=== PATIENT | female | born 1990 | race Caucasian/White ===

== ENCOUNTER → 2016-08-14 | Day surgery (SDC) | payer OTHER ==
[~2016-08-14] MED LIST: ACET-749 PO; MTR600X PO; [UNRECOGNIZED DRUG - CODE] PO
--- NOTE | 2016-08-14 15:54 | Anesthesiology Progress Note ---
Anesthesia Progress Note Date of Service Aug 14, 2016. Progress Notes Patient seen at [facility] today for exam and advise for upcoming (date to be determined). Past medical history: borderline personality disorder, schizoaffective disorder , anxiety, current 1/2 PPD tobacco use x 12 years Past surgical history: tonsillectomy Meds: prenatals Vitals: Ht 5'1; Wt 125 pounds; BP 126/75, pulse 95. temp 98.5, resp 20, spo2 99 % on room air Physical exam: Mallampati 1, TMD 3 finger breaths, no significant abnormality to lumbar spine No previous deliveries/c-sections. is currently breech so plan for c- section unless baby's position changes. Issue patient is concerned with was with either epidural or spinal placement given history of scoliosis. No previous lumbar surgery/hardware. No recent lumbar imaging. No significant abnormality noted to lumbar spine on exam. Patient reassured. Patient educated on spinal/epidural procedures. Patient seemed satisfied (explained anesthesia would do best to put in spinal/epidural with least amount of attempts as possible. All questions answered. Business card given.
== END | disposition home or self-care (01) ==
LOC: C.ACU 15:05
PROVIDERS: ATTEND Obstetrics & Gynecology
DX: Z34.83 Encounter for supervision of other normal pregnancy, third trimester (principal); M41.20 Other idiopathic scoliosis, site unspecified

== ENCOUNTER 2016-09-05 10:00 | Inpatient (IN) | payer OTHER ==
[~2016-09-05] VITALS: Ht 154.9 cm; Wt 59.1 kg
[2016-09-05] MEDS ORDERED: CITRIC ACID/SODIUM CITRATE 15 ML UDC PO ONE (11:00)
[2016-09-05 11:22] LABS: BASO % 0.1 %; BASO ABS # 0.02 K/uL (0-0.2); COMPLETE YES; EOS % 0.2 %; HEMATOCRIT 30.2 % (37-47); IG% 0.6 %; LYMPH % 15.9 %; LYMPH ABS # 2.58 K/uL (1.2-3.4); MEAN CELL VOLUME 87.8 fL (80-100); MEAN CORPUSCULAR HEMOGLOBIN 30.5 pg (25-34); MEAN CORPUSCULAR HGB CONC 34.8 g/dl (32-36); MEAN PLATELET VOLUME 9.4 fL (7.4-10.4); MONO % 7.5 %; NEUT % 75.7 %; PLATELET COUNT 264 K/uL (130-400); RED BLOOD COUNT 3.44 M/uL (4.2-5.4); WHITE BLOOD COUNT 16.24 K/uL (4.8-10.8)
[2016-09-05] MEDS ORDERED: CEFAZOLIN IV 2,000 MG in DEXTROSE 5% 50ML 50 ML IV SCH (11:30)
--- NOTE | 2016-09-05 12:00 | HISTORY & PHYSICAL EXAMINATION ---
DATE OF ADMISSION: 09/05/2016 CHIEF COMPLAINT: Rupture of membranes. HISTORY OF PRESENT ILLNESS: The patient is a 26-year-old 2, para 0 at 36 weeks and 5 days gestation, who presents to labor and delivery with spontaneous rupture of membranes that occurred around 07:00 a.m. on the morning of admission. There was a large gush of fluid and therefore, she came in for evaluation. On arrival, she was grossly ruptured. She is known to be in breech presentation. Bedside ultrasound confirmed that the baby is breech. She was found to be 3-4 cm. Her has been complicated by tobacco use and is currently a half a pack per day smoker along with a history of marijuana use throughout the . She has been followed by maternal medicine for growth restriction. She was seen by them yesterday with good umbilical artery Dopplers and a BPP that was reassuring. I discussed with the patient that she is ruptured and baby is still breech therefore will proceed with a primary section. Risks, benefits and alternatives were discussed with the patient and informed consent was obtained. PAST MEDICAL HISTORY: Significant for schizoaffective disorder, bipolar, borderline personality disorder, and marijuana use. PAST SURGICAL HISTORY: She had her tonsils removed in 2006. OBSTETRIC HISTORY: She had one ectopic in 2015. She was given methotrexate and did not require any surgery. SOCIAL HISTORY: She is currently a half a pack per day smoker. Denies alcohol use. She does have a history of drug use, was using bath salts in the past and currently smokes marijuana throughout the . MEDICATIONS: vitamins. ALLERGIES: No known drug allergies. SHE IS ALLERGIC TO PEANUTS. LABORATORIES: GBS is positive. Blood type is A positive, rubella immune, hepatitis B surface antigen negative, HIV nonreactive, and RPR negative. PHYSICAL EXAMINATION: GENERAL: The patient is awake, alert, and oriented x3. She is in no acute distress. HEART: Regular rate and rhythm. LUNGS: Clear to auscultation bilaterally. ABDOMEN: Gravid uterus, small for gestational age. Bowel sounds present x4. EXTREMITIES: No clubbing, cyanosis or calf tenderness. VAGINAL EXAM: She is grossly ruptured with clear amniotic fluid noted. She was 3-4 cm, 100% effaced, and -1 station. Bedside ultrasound confirmed baby in the breech presentation. heart tones are category 1. ASSESSMENT AND PLAN: A 26-year-old 2, para 0 at 36 weeks and 5 days gestation, who presents with premature rupture of membranes at 36 weeks and 5 days gestation, will be admitted to labor and delivery and will proceed with a primary section secondary to breech presentation and rupture of membranes. Risks, benefits and alternatives were discussed with the patient and informed consent was obtained. CHRISTIANE
[2016-09-05 12:04] LABS: BENZODIAZEPINE, URINE NEG (NEG); COCAINE,URINE NEG (NEG); PHENCYCLIDINE, URINE NEG (NEG)
[2016-09-05] MEDS ORDERED: [UNRECOGNIZED DRUG - CODE] PO (12:07)
[2016-09-05] MEDS: LACTATED RINGER'S 1000ML 1,000 ML IV SCH ×2 (12:08→12:12)
[2016-09-05] MEDS ORDERED: MoRPHine SULFATE PF 1 MG/ML 10 ML AMP/VIAL ONE (12:24)
[2016-09-05] MEDS ORDERED: SODIUM CHLORIDE 0.9% 1000ML 1,000 ML IV PRN (12:53)
[2016-09-05] MEDS ORDERED: LACTATED RINGER'S 1000ML 500 ML IV PRN (12:53)
[2016-09-05] MEDS ORDERED: NALOXONE HCL INJ 0.08 MG in SYRINGE 1.8 ML IV PRN (12:53)
[2016-09-05] MEDS ORDERED: NALOXONE HCL INJ 1 MG in SODIUM CHLORIDE 0.9% 1000ML 1,000 ML IV PRN ×4 (12:53)
[2016-09-05 12:59] VITALS: Ht 154.9 cm; Wt 59.1 kg
[2016-09-05] MEDS ORDERED: EpHEDrine SULFATE INJ 50 MG/ML AMP IV PRN ×2 (13:00)
[2016-09-05] MEDS ORDERED: ONDANSETRON INJ 2 MG/ML 2 ML VIAL IV PRN ×2 (13:00)
[2016-09-05] MEDS ORDERED: PROMETHAZINE HCL INJ 12.5 MG in SODIUM CHLORIDE 0.9% 50ML 50 ML IV PRN (13:00)
[2016-09-05] MEDS ORDERED: PROMETHAZINE HCL INJ 25 MG in SODIUM CHLORIDE 0.9% 50ML 50 ML IV PRN (13:00)
[2016-09-05] MEDS ORDERED: MoRPHine SULFATE PF 1 MG/ML 10 ML AMP/VIAL EPI PRN (13:00)
[2016-09-05] MEDS ORDERED: DiphenhydrAMINE HCL 50 MG/ML VIAL IV PRN (13:00)
[2016-09-05] MEDS ORDERED: NALBUPHINE HCL INJ 10 MG/ML AMP IV PRN (13:00)
[2016-09-05] MEDS ORDERED: ATROPINE SULFATE 0.1 MG/ML 5ML SYR IV PRN (13:00)
[2016-09-05] MEDS ORDERED: NO NARCOTICS OR SEDATIVES SCH (13:00)
[2016-09-05] MEDS ORDERED: NALOXONE HCL 0.4 MG/1 ML VIAL/CARP IV PRN (13:00)
[2016-09-05] MEDS ORDERED: MEPERIDINE HCL 25 MG/ML CARP IV PRN ×2 (13:00)
[2016-09-05] MEDS ORDERED: PHENYLEPHRINE 100MCG/ML 5ML SYR IV PRN (13:00)
[2016-09-05] MEDS ORDERED: KETOROLAC TROMETHAMINE 30 MG/ML VIAL IV. PRN (13:00)
[2016-09-05] MEDS ORDERED: ONDANSETRON INJ 2 MG/ML 2 ML VIAL ONE (14:04)
[2016-09-05] MEDS ORDERED: OXYTOCIN INJ 10 UNITS/ML VIAL ONE (14:04)
[2016-09-05] MEDS ORDERED: METOCLOPRAMIDE HCL INJ 5 MG/ML 2 ML VIAL ONE (14:04)
[2016-09-05] MEDS ORDERED: PROPOFOL IV EMULSION 10 MG/ML 20 ML VIAL IV ONE (14:04)
[2016-09-05] MEDS ORDERED: MIDAZOLAM HCL 1 MG/ML 2ML VIAL ONE (14:15)
[2016-09-05] MEDS ORDERED: LACTATED RINGER'S 1000ML 1,000 ML IV SCH (14:41)
[2016-09-05] MEDS ORDERED: DIPHTHERIA/TETANUS/PERTUSSIS 0.5 ML SYR/VIAL IM. ONE (14:45)
[2016-09-05] MEDS ORDERED: MAGNESIUM HYDROXIDE SUSP 30 ML UDC PO PRN (14:45)
[2016-09-05] MEDS ORDERED: HYDROCORTISONE ACETATE 25 MG SUPP PR PRN (14:45)
[2016-09-05] MEDS ORDERED: LANOLIN OINT EXT PRN ×2 (14:45)
[2016-09-05] MEDS ORDERED: SUPERCREAM 0.870 % 15GM JAR EXT PRN (14:45)
[2016-09-05] MEDS ORDERED: SENNA 8.6 MG TAB PO PRN (14:45)
[2016-09-05] MEDS ORDERED: BENZOCAINE 20% AER SPR 82.5 GM CAN EXT PRN (14:45)
--- NOTE | 2016-09-05 14:47 | [facility] Post Operative Brief Note ---
Immediate Operative Summary Operative Date Sep 05, 2016. Pre-Operative Diagnosis IUP 36.5 weeks, PPROM, breech, IUGR Post-Operative Diagnosis IUP 36.5 weeks, PPROM, breech, IUGR Procedure(s) Performed Primary low uterine transverse caesarean section Live female child at Surgeon Dr. Tavera Estimated Blood Loss 500ml Findings Patient delivered a viable female infant via PLTCS secondary to breech presentation. 's and weight pending. Normal uterus and bilateral tubes and ovaries noted. An intact placenta with a 3 VC delivered manually and sent to pathology. Cord blood gases obtained. Both patient and baby tolerated well and were sent to recovery with stable vital signs. Fluids (cc crystalloids) 3000 Specimens A: Placenta-exam B: Cord blood C: Arterial & venous cord gases Drains Valladares to gravity Anesthesia Spinal Complication(s) None Disposition L&D
[2016-09-05] MEDS: KETOROLAC TROMETHAMINE 30 MG/ML VIAL IV. PRN (15:05)
--- NOTE | 2016-09-05 16:29 | OPERATIVE REPORT ---
DATE OF OPERATION: 09/05/2016 PREOPERATIVE DIAGNOSES: 1. Intrauterine at 36 weeks and 5 days gestation. 2. Breech presentation. 3. premature rupture of membranes. 4. Intrauterine growth restriction. POSTOPERATIVE DIAGNOSES: Same. OPERATIVE PROCEDURE: Primary low transverse section. SURGEON: Dr. Tavera. SENIOR CYTOGENETIC TECHNOLOGIST: None. ANESTHESIA: Spinal. ESTIMATED BLOOD LOSS: 500 mL. INTRAVENOUS FLUIDS: 3000 mL crystalloids. URINE OUTPUT: 100 mL clear yellow urine. SPECIMENS: Placenta with 3-vessel cord. Cord blood gases and cord blood. DRAINS: Valladares to gravity. COMPLICATIONS: None. DISPOSITION: Labor and delivery. OPERATIVE FINDINGS: The patient presented to labor and delivery on the morning of 09/05/2016 with spontaneous rupture of membranes at approximately 7 a.m. on the morning of admission. She was found to be in the breech presentation. She has been followed for IUGR by maternal medicine. She had normal umbilical artery Dopplers yesterday and a reassuring BPP. On arrival, she was found to be 3-4 cm. Bedside ultrasound confirmed the baby was still in the breech presentation. Therefore, patient was agreeable to proceed with a primary section. She delivered a viable female in the sohan breech presentation. Apgars and weight were pending. Normal uterus and bilateral tubes and ovaries were noted. An intact placenta with a 3-vessel cord delivered manually and sent to pathology. Cord blood gases obtained. Both patient and baby tolerated the surgery well and were sent to recovery with stable vital signs. OPERATIVE PROCEDURE IN DETAIL: The patient was taken to the operating room where general spinal anesthesia was administered. The patient was immediately placed in a dorsal supine position with a left lateral tilt and was prepped and draped in a manner appropriate for the procedure. Once anesthesia was found to be adequate, a Pfannenstiel skin incision was made 2 fingerbreadths above the pubic symphysis and was carried down through to the layer of the rectus fascia. Fascia was nicked in the midline and extended bilaterally with curved Simental scissors. The superior aspect of the fascial incision was grasped with Qian clamps, elevated, and the rectus muscles were dissected off with the use of the curved Simental scissors and electrocautery. Likewise, the inferior aspect of the fascial incision was grasped with Qian clamps, elevated, and the rectus muscles were dissected off with the use of the curved Simental scissors. The rectus muscles were in midline. The peritoneum was grasped with hemostats x2 and entered with Metzenbaum scissors. The peritoneal incision was then extended cephalocaudally with gentle traction. The bladder blade was then placed within the abdomen and the vesicouterine peritoneum was identified and a bladder flap was created with Metzenbaum scissors and digital traction. The bladder flap was then reincorporated beneath the Maxwell blade. A transverse incision was then made on the uterus and extended bilaterally with bandage scissors. The baby was then delivered in the sohan breech presentation without difficulty. Baby was bulb suctioned at delivery. Cord was clamped x2 and cut. The baby was immediately handed to an awaiting tire adjuster for further evaluation and management. Please see their notes for further baby assessment. Cord blood was then obtained and cord blood gases were also obtained. An intact placenta with 3-vessel cord was then delivered through the incision manually. The uterus was then exteriorized and wrapped in a moist laparotomy sponge. The uterus was then cleared of any trailing membranes and debris with the laparotomy sponge. The uterine incision was grasped with ring forceps in 4 quadrants and was closed with 0 Vicryl suture in continuous locking fashion. The second 0 Vicryl suture was used in imbricating fashion to ensure hemostasis. Any residual bleeding was suture-ligated with 0 Vicryl suture in a [id number] interrupted fashion. Excellent hemostasis was noted. The bladder flap was reapproximated to the lower uterine segment with 3-0 Vicryl suture in continuous running fashion. Excellent hemostasis was noted at the incision. The posterior cul-de-sac was then irrigated with warm saline solution. The uterus was then placed back within its normal anatomic position within the abdomen. The anterior cul-de-sac was then irrigated with warm saline solution. Inspection of the uterine incision was again noted to be hemostatic. All instruments were then removed from the abdomen. The peritoneum was grasped with Amanda clamps at 4 quadrants. It was closed with 2-0 Vicryl suture in continuous running fashion. The rectus fascia was then closed with 0 Vicryl suture in a continuous running fashion. Subcutaneous tissue was reapproximated with 2-0 Vicryl suture in an interrupted fashion. Skin was then closed with jessika. Excellent hemostasis was noted through all tissue layers. All sponge and instrument counts were found to be correct x2. The patient tolerated the surgery well and were sent to recovery with stable vital signs. I attest to the content of the Intraoperative Record and any orders documented therein. Any exceptio ns are noted below.
[2016-09-05] MEDS: SIMETHICONE 80 MG CHEW PO SCH ×2 (17:00→20:00)
[2016-09-05] MEDS: NICOTINE 14 MG/24 HR TDSY TD SCH (18:38)
--- NOTE | 2016-09-05 19:01 | Anesthesiology Progress Note ---
Anesthesia Post Op Note Date & Time Sep 05, 2016 at 19:00 Vital Signs Pain Intensity: 4.0 Notes Mental Status: alert / awake / arousable, participated in evaluation Pt Amnestic to Procedure: Yes Nausea / Vomiting: adequately controlled, improving with treatment Pain: adequately controlled Airway Patency, RR, SpO2: stable & adequate BP & HR: stable & adequate Hydration State: stable & adequate Neuraxial Anesthesia: was administered, sensory block is resolving Anesthetic Complications: no major complications apparent
[2016-09-05] MEDS: OXYTOCIN INJ 30 UNITS in LACTATED RINGER'S 1000ML 1,000 ML IV SCH (19:57)
[2016-09-05 20:00] VITALS: BP 130/71; PULSE 79; TEMP 37.1; O2SAT 98
[2016-09-05] MEDS: DOCUSATE SODIUM 100 MG CAP PO SCH (20:00)
[2016-09-05 21:00] VITALS: O2SAT 100
[2016-09-05 22:00] VITALS: O2SAT 99
[2016-09-05 23:00] VITALS: O2SAT 99
[2016-09-06] VITALS (11 sets, daily range): BP systolic 106–128; BP diastolic 62–80; PULSE 74–87; TEMP 36.7–37; O2SAT 98–100
[2016-09-06] MEDS: KETOROLAC TROMETHAMINE 30 MG/ML VIAL IV. PRN (00:07)
[2016-09-06] MEDS: OXYTOCIN INJ 30 UNITS in LACTATED RINGER'S 1000ML 1,000 ML IV SCH (03:30)
[2016-09-06] MEDS ORDERED: DC INTRASPINAL MORPHINE SCH (06:00)
[2016-09-06] MEDS ORDERED: OXYCODONE/ACETAMINOPHEN 5-325 TAB PO PRN (06:00)
[2016-09-06] MEDS ORDERED: ONDANSETRON INJ 2 MG/ML 2 ML VIAL IV PRN (06:00)
[2016-09-06] MEDS ORDERED: KETOROLAC TROMETHAMINE 30 MG/ML VIAL IV. PRN (06:00)
[2016-09-06] MEDS ORDERED: ZOLPIDEM TARTRATE 5 MG TAB PO PRN (06:00)
[2016-09-06 06:23] LABS: HEMATOCRIT 30.4 % (37-47); MEAN CELL VOLUME 86.9 fL (80-100); MEAN CORPUSCULAR HEMOGLOBIN 30.6 pg (25-34); MEAN CORPUSCULAR HGB CONC 35.2 g/dl (32-36); MEAN PLATELET VOLUME 9.4 fL (7.4-10.4); PLATELET COUNT 271 K/uL (130-400); WHITE BLOOD COUNT 14.66 K/uL (4.8-10.8)
[2016-09-06 08:10] LABS: BASO % 0.2 %; BASO ABS # 0.03 K/uL (0-0.2); COMPLETE YES; EOS % 0.3 %; IG% 0.4 %; LYMPH ABS # 2.35 K/uL (1.2-3.4); MONO % 7.8 %; NEUT % 75.3 %
[2016-09-06] MEDS: NICOTINE 14 MG/24 HR TDSY TD SCH (08:53)
[2016-09-06] MEDS: SIMETHICONE 80 MG CHEW PO SCH ×4 (08:55→20:01)
[2016-09-06] MEDS: PRENATAL VITAMIN TAB PO SCH (08:55)
[2016-09-06] MEDS: DOCUSATE SODIUM 100 MG CAP PO SCH ×2 (08:55→20:01)
[2016-09-06] MEDS: FERROUS SULFATE 325 MG TAB PO SCH (08:55)
[2016-09-06] MEDS: OXYCODONE/ACETAMINOPHEN 5-325 TAB PO PRN ×3 (08:58→20:45)
[2016-09-06] MEDS: IBUPROFEN 600 MG TAB PO PRN ×3 (08:58→20:45)
--- NOTE | 2016-09-06 09:23 | OB/GYN Progress Note ---
CHIEF DESIGN BRANCH Progress Note Date of Service Sep 06, 2016. Subjective conversation w/ patient, physical exam Ambulation: ambulating normally Voiding: no voiding problems Passing Gas: Yes Diet Tolerance: Regular Diet Lochia: Small Feeding Type: Breast Feeding Pain: 07/31 Notes: Doing much better this morning. Pain well controlled. Ambulating without difficulty. Incision is c/d/i. Tolerating regular diet, +flatus, -BM. Objective Vital Signs Date Time Temp Pulse Resp B/P Pulse Ox O2 Delivery O2 Flow Rate FiO2 09/06/16 05:47 36.9 76 18 120/77 09/06/16 05:00 18 98 09/06/16 04:00 18 98 09/06/16 03:00 18 100 09/06/16 02:00 18 99 09/06/16 01:00 18 100 09/06/16 00:20 98 Room Air 09/06/16 00:00 18 98 09/05/16 23:00 18 99 09/05/16 22:00 18 99 09/05/16 21:00 18 100 09/05/16 20:00 98 Nasal Cannula 09/05/16 20:00 98 09/05/16 20:00 16 98 09/05/16 20:00 37.1 79 16 130/71 98 Room Air Physical Exam General Appearance: WELL-APPEARING Respiratory/Chest: chest non-tender Cardiovascular: regular rate, rhythm Abdomen: normal bowel sounds, soft Fundus: Firm Incision Description: Clean, Dry & Intact Extremities: normal range of motion, non-tender, no calf tenderness Laboratory Results Last 24 Hours Test 09/05/16 09:55 09/05/16 11:12 09/06/16 06:07 Urine Opiates Screen NEG Urine Methadone, Qualitative NEG Urine Barbiturates NEG Urine Phencyclidine (PCP) Level NEG Ur Amphetamine/Methamphetamine NEG MDMA (Ecstasy) Screen NEG Urine Benzodiazepines Screen NEG Urine Cocaine Metabolite NEG Urine Marijuana (THC) POS White Blood Count 16.24 K/uL 14.66 K/uL Red Blood Count 3.44 M/uL 3.50 M/uL Hemoglobin 10.5 g/dL 10.7 g/dL Hematocrit 30.2 % 30.4 % Mean Corpuscular Volume 87.8 fL 86.9 fL Mean Corpuscular Hemoglobin 30.5 pg 30.6 pg Mean Corpuscular Hemoglobin Concent 34.8 g/dl 35.2 g/dl Platelet Count 264 K/uL 271 K/uL Mean Platelet Volume 9.4 fL 9.4 fL Neutrophils (%) (Auto) 75.7 % 75.3 % Lymphocytes (%) (Auto) 15.9 % 16.0 % Monocytes (%) (Auto) 7.5 % 7.8 % Eosinophils (%) (Auto) 0.2 % 0.3 % Basophils (%) (Auto) 0.1 % 0.2 % Neutrophils # (Auto) 12.30 K/uL 11.03 K/uL Lymphocytes # (Auto) 2.58 K/uL 2.35 K/uL Monocytes # (Auto) 1.21 K/uL 1.14 K/uL Eosinophils # (Auto) 0.04 K/uL 0.05 K/uL Basophils # (Auto) 0.02 K/uL 0.03 K/uL RDW Standard Deviation 42.9 fL 41.9 fL RDW Coefficient of Variation 13.3 % 13.1 % Immature Granulocyte % (Auto) 0.6 % 0.4 % Immature Granulocyte # (Auto) 0.09 K/uL 0.06 K/uL Assessment and Plan Post-, Post-Op Day Number: 1 Continue Routine Care: -Continue routine postop care -Anticipate d/C home tomorrow. -F/u in 1 week for staple removal.
[2016-09-06] MEDS ORDERED: NICOTINE 14 MG/24 HR TDSY TD SCH (20:15)
[2016-09-06] MEDS ORDERED: BISACODYL 5 MG TABEC PO ONE (22:00)
[2016-09-07 00:45] VITALS: BP 133/81; PULSE 73; TEMP 36.6
[2016-09-07] MEDS ORDERED: NURSING VERBAL MED ORDER ONE (04:30)
[2016-09-07] MEDS ORDERED: NICOTINE 21 MG/24 HR TDSY EXT ONE (04:45)
[2016-09-07] MEDS: FERROUS SULFATE 325 MG TAB PO SCH (07:46)
[2016-09-07] MEDS: PRENATAL VITAMIN TAB PO SCH (07:46)
[2016-09-07] MEDS: SIMETHICONE 80 MG CHEW PO SCH ×2 (07:47→12:24)
[2016-09-07] MEDS: OXYCODONE/ACETAMINOPHEN 5-325 TAB PO PRN ×2 (07:48→12:25)
[2016-09-07] MEDS: IBUPROFEN 600 MG TAB PO PRN ×2 (07:48→12:25)
[2016-09-07 08:00] VITALS: BP 131/81; PULSE 90; TEMP 36.7
[2016-09-07] MEDS: DOCUSATE SODIUM 100 MG CAP PO SCH (08:01)
--- NOTE | 2016-09-07 09:12 | Surgery Progress Note ---
Surgery Progress Note Date of Service Sep 07, 2016. Subjective Post OP Day: 2 + ambulating, + diet, + feeling well, + flatus, + pain controlled Objective Vital Signs: Date Time Temp Pulse Resp B/P Pulse Ox O2 Delivery O2 Flow Rate FiO2 09/07/16 08:00 36.7 90 18 131/81 Room Air 09/07/16 08:00 Room Air 09/07/16 00:45 36.6 73 18 133/81 09/07/16 00:45 Room Air 09/06/16 15:20 36.7 87 16 128/80 100 Room Air 09/06/16 15:20 100 Room Air 09/06/16 11:50 37.0 74 16 106/62 Abdomen: non tender, non distended, soft Incision(s): clean, dry, intact Extremities: non-tender, normal inspection, no pedal edema Assessment & Plan regular diet Stable for discharge if baby going home
[2016-09-07] MEDS ORDERED: ACET-749 PO (09:14)
[2016-09-07] MEDS ORDERED: MTR600X PO (09:14)
--- NOTE | 2016-09-07 09:16 | Discharge Instructions ---
Discharge Instructions Date of Service Sep 07, 2016. Admission Reason for Admission: R/O Rupture Of Membranes Discharge Discharge Diagnosis / Problem: term breech IUGR Discharge Goals Goal(s): Routine recovery after Activity Recommendations Activity Limitations: as noted below Lifting Limitations: no more than 10 pounds, gradually increase as tolerated Exercise/Sports Limitations: until after follow-up appointment May Resume Sexual Activity: after follow-up appointment Shower/Bathe: no limitations Driving or Machine Use: . Instructions / Follow-Up Instructions / Follow-Up ACTIVITY RECOMMENDATIONS: * Gradual return to full activity over the next 2-3 weeks. * No lifting - nothing heavier than baby over the next 2-3 weeks. * Do not engage in vigorous exercise, sexual activity or sports until cleared by your physician. * Do not drive or operate any motorized equipment until cleared by your physician. * You may shower/bathe daily. BREAST CARE: If you are not breast feeding: * Wear a supportive bra 24 hours a day for one to two weeks. * Avoid stimulating your breasts and nipples as much as possible during the first few weeks after delivery. * When taking a shower, have the warm water hit your back, not breasts. * When your breasts feel full, apply ice packs. Usually three to four times a day helps ease the discomfort. * Take a mild pain medication (Tylenol/Motrin) when you are uncomfortable. If breast feeding: * Use breast milk to lubricate nipples. Lansinoh cream may be used for sore nipples. You do not need to remove cream prior to breast feeding. If using a different brand of cream, check the label for directions regarding removal of cream prior to nursing. * Wear a supportive bra. * If having problems with breasts or breast feeding, call a [employer] consultant or your health care provider. OVER THE COUNTER MEDICATION: * For discomfort or pain, you may use Acetaminophen (Tylenol), Ibuprofen (Advil ), or Naproxen (Aleve) following the package directions. * For constipation you may use Colace following the package directions. SPECIAL CARE INSTRUCTIONS: When you are discharged from the hospital, it is important for you to follow the instructions listed below: * During the first week at home, you should be able to care for yourself and your baby. In addition, the usual light household activities are encouraged. * Limit your activities to the way you feel. Do not try to clean the house or move furniture. Be sensible. * If you actively engage in sports and have done so up until the time of your delivery, you may resume these activities as soon as you feel able. This may take up to one month or even longer. Use good judgment. * Continue to take your vitamins for at least six weeks after the of your baby. * Your diet need not be limited unless you were on a special diet before your delivery. Breast-feeding mothers need around 2500 calories per day and at least 64-80 ounces of fluid per day (8 to 10 glasses). * You should eat foods from the four major food groups. Crash diets or fad diets are to be avoided. Eating lean meats, fresh fruits and vegetables, low-fat dairy products, high fiber foods and a regular exercise program, will help you get back to your pre- weight without putting your health at risk. * Constipation is sometimes a problem after delivery. Take a mild laxative as needed. If breast feeding, Milk of Magnesia is acceptable to use. You may use a suppository or Fleets enema if no episiotomy. * A daily shower or tub bath is suggested. Be sure to thoroughly and gently dry the perineum. * A bloody vaginal discharge will usually continue until around four weeks post . A small amount of bleeding may continue for as long as six weeks. Vaginal discharge changes from the bright red bleeding after delivery to pink then brownish and finally yellowish-pink before becoming white and disappearing. * Bleeding may increase with activity. Your first period may come in 4-8 weeks. If you are breast feeding, your period may be delayed even longer. * [place] (sex) can begin whenever both you and your partner feel comfortable and do not have any form of genital infection. It is recommended that you wait at least six weeks for internal and external healing to occur. If you have questions, please talk to your health care practitioner. A condom should be used to prevent infection and . * Foreplay, gentle intercourse and lubrication is very important the first several times to prevent pain. A water-based lubricant such as K-Y jelly or Astroglide may be used. * Tampons and/or Douching should be avoided until after six weeks check-up. * If you have RH negative blood and your baby is RH positive, you will receive RHOGAM by injection prior to discharge. The nurse will give you a card to keep with you that has the date and place that you received RHOGAM after delivery. * During your care, you had a Rubella screen done to check for the presence of rubella antibodies in your blood. If your test was negative, you will receive a Rubella vaccine prior to discharge. This vaccine may cause a fever, soreness at the injection site and flu-like symptoms. If these symptoms persist, notify your health care practitioner. is not advised for three months after a Rubella vaccine. * Verbalizes understanding of car seat law as reviewed with patient nursing. * Car Seat hand-out given and reviewed with patient by nursing. * Shaken baby information reviewed with patient by nursing. Call you doctor if: * Heavy bleeding (saturating several pads an hour) or passing clots the size of your fist. * A fever >101 degrees F (38.3 degrees C) on two occasions four hours apart and /or chills. * Unusual pain in the pelvic or vaginal areas. Pain should improve each day . * Call the doctor for any increased redness, drainage or swelling around the incision and any pain unrelieved by prescribed pain medication. * Any signs or symptoms of phlebitis (possible blood clots forming in the veins ): leg pain, warm, red or swollen area on leg. * "Baby Blues" lasting longer than two weeks. If you have any questions or concerns, call your health care practitioner at . FOLLOW-UP VISIT: * Incision check (staple removal) in 1 week. Please call doctor's office at to set up appointment. * Please call the office at to schedule a 6 week examination. It is important you keep this appointment. * It is important for you to make arrangements for either yearly or twice yearly check-ups thereafter. Current Hospital Diet Patient's current hospital diet: Regular OB Diet Discharge Diet Recommended Diet: Regular OB Diet Procedures Procedures Performed: Primary low uterine transverse caesarean section Live female child at 1405 Pending Studies Studies pending at discharge: no Medical Emergencies . Who to Call and When: Medical Emergencies: If at any time you feel your situation is an emergency, please call 911 immediately. . Non-Emergent Contact Non-Emergency issues call your: Primary Care Provider . . "Provider Documentation" section prepared by Loki Russell. VTE Core Measure Inpt VTE Proph given/why not?: Treatment not indicated
[2016-09-07 14:29] VITALS: BP_DIAS 81; PULSE 90; TEMP 36.7
[2016-09-07] MEDS ORDERED: BISACODYL 10 MG SUPP PR PRN (14:45)
--- NOTE | 2016-09-17 07:42 | Discharge Summary ---
Discharge Summary Date of Service Sep 17, 2016. Discharge Summary Admission Date: Sep 05, 2016 at 11:02 Discharge Date: Sep 07, 2016 Discharge Disposition: Home Principal Diagnosis: IUP 36.5 weeks, Breech, PPROM, IUGR Procedures: Primary section Medication Reconciliation New Medications: Acetaminophen/Codeine (Tylenol W/Codeine #3) 300 Mg/30 Mg Tab 1 TAB PO Q4H PRN for Pain, #20 TAB Ibuprofen (Ibuprofen) 600 Mg Tab 600 MG PO Q4H PRN for Pain, VALDES, Cramping, or Fever, #30 TAB 2 Refills Continued Medications: Vit W/ Ferrous Fumara ( Low Iron) 1 Tab Tab 1 TAB PO DAILY for 90 Days, #90 TAB 3 Refills Admission Information HPI (per Admitting provider): HISTORY OF PRESENT ILLNESS: The patient is a 26-year-old 2, para 0 at 36 weeks and 5 days gestation, who presents to labor and delivery with spontaneous rupture of membranes that occurred around 07:00 a.m. on the morning of admission. There was a large gush of fluid and therefore, she came in for evaluation. On arrival, she was grossly ruptured. She is known to be in breech presentation. Bedside ultrasound confirmed that the baby is breech. She was found to be 3-4 cm. Her has been complicated by tobacco use and is currently a half a pack per day smoker along with a history of marijuana use throughout the . She has been followed by maternal medicine for growth restriction. She was seen by them yesterday with good umbilical artery Dopplers and a BPP that was reassuring. I discussed with the patient that she is ruptured and baby is still breech therefore will proceed with a primary section. Risks, benefits and alternatives were discussed with the patient and informed consent was obtained. Physical Exam (per Admitting): General Appearance: WD/WN, no apparent distress Head: normocephalic Respiratory/Chest: chest non-tender, lungs clear Cardiovascular: regular rate, rhythm Abdomen/GI: normal bowel sounds, soft Neurologic/Psych: alert, oriented x 3 Skin: normal color, warm/dry, no rash Hospital Course Patient underwent a primary section for PPROM at 36.5 weeks and breech presentation. Both patient and baby tolerated the surgery well and were sent to recovery with stable vital signs. Her postop recovery was uneventful. Pain was well controlled. Incision remained clean, dry and intact. Her diet and activity were advanced as tolerated. She was discharged home on POD # 2 with discharge instructions. Total time spent on discharge = 30 mins This includes examination of the patient, discharge planning, medication reconciliation, and communication with other providers. Discharge Instructions ACTIVITY RECOMMENDATIONS: * Gradual return to full activity over the next 2-3 weeks. * No lifting - nothing heavier than baby over the next 2-3 weeks. * Do not engage in vigorous exercise, sexual activity or sports until cleared by your physician. * Do not drive or operate any motorized equipment until cleared by your physician. * You may shower/bathe daily. BREAST CARE: If you are not breast feeding: * Wear a supportive bra 24 hours a day for one to two weeks. * Avoid stimulating your breasts and nipples as much as possible during the first few weeks after delivery. * When taking a shower, have the warm water hit your back, not breasts. * When your breasts feel full, apply ice packs. Usually three to four times a day helps ease the discomfort. * Take a mild pain medication (Tylenol/Motrin) when you are uncomfortable. If breast feeding: * Use breast milk to lubricate nipples. Lansinoh cream may be used for sore nipples. You do not need to remove cream prior to breast feeding. If using a different brand of cream, check the label for directions regarding removal of cream prior to nursing. * Wear a supportive bra. * If having problems with breasts or breast feeding, call a clinical application consultant or your health care provider. OVER THE COUNTER MEDICATION: * For discomfort or pain, you may use Acetaminophen (Tylenol), Ibuprofen (Advil ), or Naproxen (Aleve) following the package directions. * For constipation you may use Colace following the package directions. SPECIAL CARE INSTRUCTIONS: When you are discharged from the hospital, it is important for you to follow the instructions listed below: * During the first week at home, you should be able to care for yourself and your baby. In addition, the usual light household activities are encouraged. * Limit your activities to the way you feel. Do not try to clean the house or move furniture. Be sensible. * If you actively engage in sports and have done so up until the time of your delivery, you may resume these activities as soon as you feel able. This may take up to one month or even longer. Use good judgment. * Continue to take your vitamins for at least six weeks after the of your baby. * Your diet need not be limited unless you were on a special diet before your delivery. Breast-feeding mothers need around 2500 calories per day and at least 64-80 ounces of fluid per day (8 to 10 glasses). * You should eat foods from the four major food groups. Crash diets or fad diets are to be avoided. Eating lean meats, fresh fruits and vegetables, low-fat dairy products, high fiber foods and a regular exercise program, will help you get back to your pre- weight without putting your health at risk. * Constipation is sometimes a problem after delivery. Take a mild laxative as needed. If breast feeding, Milk of Magnesia is acceptable to use. You may use a suppository or Fleets enema if no episiotomy. * A daily shower or tub bath is suggested. Be sure to thoroughly and gently dry the perineum. * A bloody vaginal discharge will usually continue until around four weeks post . A small amount of bleeding may continue for as long as six weeks. Vaginal discharge changes from the bright red bleeding after delivery to pink then brownish and finally yellowish-pink before becoming white and disappearing. * Bleeding may increase with activity. Your first period may come in 4-8 weeks. If you are breast feeding, your period may be delayed even longer. * Combs (sex) can begin whenever both you and your partner feel comfortable and do not have any form of genital infection. It is recommended that you wait at least six weeks for internal and external healing to occur. If you have questions, please talk to your health care practitioner. A condom should be used to prevent infection and . * Foreplay, gentle intercourse and lubrication is very important the first several times to prevent pain. A water-based lubricant such as K-Y jelly or Astroglide may be used. * Tampons and/or Douching should be avoided until after six weeks check-up. * If you have RH negative blood and your baby is RH positive, you will receive RHOGAM by injection prior to discharge. The nurse will give you a card to keep with you that has the date and place that you received RHOGAM after delivery. * During your care, you had a Rubella screen done to check for the presence of rubella antibodies in your blood. If your test was negative, you will receive a Rubella vaccine prior to discharge. This vaccine may cause a fever, soreness at the injection site and flu-like symptoms. If these symptoms persist, notify your health care practitioner. is not advised for three months after a Rubella vaccine. * Verbalizes understanding of car seat law as reviewed with patient nursing. * Car Seat hand-out given and reviewed with patient by nursing. * Shaken baby information reviewed with patient by nursing. Call you doctor if: * Heavy bleeding (saturating several pads an hour) or passing clots the size of your fist. * A fever >101 degrees F (38.3 degrees C) on two occasions four hours apart and /or chills. * Unusual pain in the pelvic or vaginal areas. Pain should improve each day . * Call the doctor for any increased redness, drainage or swelling around the incision and any pain unrelieved by prescribed pain medication. * Any signs or symptoms of phlebitis (possible blood clots forming in the veins ): leg pain, warm, red or swollen area on leg. * "Baby Blues" lasting longer than two weeks. If you have any questions or concerns, call your health care practitioner at . FOLLOW-UP VISIT: * Incision check (staple removal) in 1 week. Please call doctor's office at to set up appointment. * Please call the office at to schedule a 6 week examination. It is important you keep this appointment. * It is important for you to make arrangements for either yearly or twice yearly check-ups thereafter.
== END 2016-09-07 14:15 | disposition home or self-care (01) | DRG 765 ==
LOC: C.LD 10:00 → C.OPB 10:00 → C.LD 11:02 → C.OPB 11:02 → C.OBG 19:57 → UNDODISIN 09-06 12:30
PROVIDERS: ADMIT Obstetrics & Gynecology; ATTEND Obstetrics & Gynecology
PROC: 10D00Z1 Extraction of Products of Conception, Low, Open Approach (ICD-10-PCS; principal; 2016-09-05 11:55)
DX: O32.1XX0 Maternal care for breech presentation, not applicable or unspecified (principal); O36.5930 Maternal care for other known or suspected poor fetal growth, third trimester, not applicable or unspecified; O99.324 Drug use complicating childbirth; F12.90 Cannabis use, unspecified, uncomplicated; O42.913 Preterm premature rupture of membranes, unspecified as to length of time between rupture and onset of labor, third trimester; O99.334 Smoking (tobacco) complicating childbirth; F17.200 Nicotine dependence, unspecified, uncomplicated; Z37.0 Single live birth; Z3A.36 36 weeks gestation of pregnancy